=== PATIENT | female | born 1995 | race Caucasian/White ===

== ENCOUNTER 2024-02-22 11:50 | Outpatient (CLI) | payer SELFPAY ==
[2024-02-22] MEDS: RHO(D) IMMUNE GLOBULIN 1,500 UNIT (300MCG) SYRINGE 300 MCG IM (13:39)
[2024-02-22 13:42] VITALS: BP 126/64; PULSE 77; RESP 18; O2SAT 99
== END 2024-02-22 13:50 | disposition home or self-care (01) ==
PROVIDERS: Visit Provider Obstetrics & Gynecology
DX: Z34.82 Encounter for supervision of other normal pregnancy, second trimester (principal)
CPT/HCPCS: 36415; 96372; J2790